=== PATIENT | female | born 1980 | race Caucasian/White ===

== ENCOUNTER 2019-06-04 11:51 | Emergency (ER) | payer SELFPAY ==
[2019-06-04] MEDS ORDERED: Acetaminophen 500 MG TAB ONE (12:24)
[2019-06-04] MEDS ORDERED: Bicillin LA 1.2 MILLION UNITS/2 ML SYRINGE ONE (12:24)
== END 2019-06-04 13:00 | disposition home or self-care (01) ==
LOC: MADERS 11:51
DX: A38.9 Scarlet fever, uncomplicated (principal); I10 Essential (primary) hypertension; E66.9 Obesity, unspecified; F17.200 Nicotine dependence, unspecified, uncomplicated
CPT/HCPCS: 96372; 99282; J0561

== ENCOUNTER 2022-10-09 10:59 | Emergency (ER) | payer SELFPAY ==
[2022-10-09] MEDS ORDERED: cloNIDine 0.1 MG TAB ONE (11:21)
[2022-10-09] MEDS ORDERED: cloNIDine 0.1mg/24 Hour PATCH ONE (11:21)
== END 2022-10-09 12:56 | disposition home or self-care (01) ==
LOC: MADERS 10:59
DX: S01.80XD Unspecified open wound of other part of head, subsequent encounter (principal); I10 Essential (primary) hypertension; E66.9 Obesity, unspecified; F17.210 Nicotine dependence, cigarettes, uncomplicated
CPT/HCPCS: 99283